=== PATIENT | male | born 1975 | race Two or more races ===

== ENCOUNTER 2023-01-13 15:24 | Emergency (ER) | payer OTHER, SELFPAY ==
[2023-01-13 16:33] VITALS: BP 122/87; PULSE 74; RESP 16; TEMP 35.9; O2SAT 100; BMI 26.4
--- NOTE | 2023-01-13 16:35 | ED.GENADULT ---
HPI - General Adult General Chief complaint: Eye Problems Stated complaint: red eyes, blurry vision Time Seen by Provider: 01/13/23 16:57 Source: patient Mode of arrival: ambulatory Limitations: no limitations History of Present Illness HPI narrative: 47-year-old male presents for bilateral redness eyes times greater than a week, patient reports it started in 1 eye and then went to the next eye, he reports at times his eyes sting, and in the morning there is crusting to bilateral eyes with yellow/green eye discharge. Patient but [id number] eyedrops for pinkeye symptom relief with little to no improvement. He reports that when there is discharge in his eye his vision is blurred however not blurred at this time. Patient denies headache, vision changes, dizziness, weakness, nausea, vomiting, abdominal pain, weakness, chest pain and shortness of breath Related Data Previous Rx's Medication Instructions Recorded erythromycin 5 mg/gram (0.5 %) eye 1 appl ophthalmic (eye) TID 5 days 01/13/23 ointment #3.5 grams Allergies Allergy/AdvReac Type Severity Reaction Status Date / Time No Known Allergies Allergy Verified 01/13/23 16:33 Review of Systems Review of Systems: Constitutional : No Weight loss, No Fever, No Chills, No Fatigue, No Malaise ENT/Mouth : No sore throat, No Rhinorrhea Eyes: No Eye Pain, No Swelling, + Redness Cardiovascular : No Chest Pain, No SOB, No Dyspnea on Exertion, No Orthopnea, No Edema, No Palpitations Respiratory : No Cough, No Sputum, No Wheezing Gastrointestinal : No Nausea, No Vomiting, No Diarrhea, No Constipation, No abdominal Pain, No Hematochezia, No Melena Genitourinary : No Dysuria, No Urinary Frequency, No Hematuria, Musculoskeletal : No joint pain, No Myalgias, No Joint Swelling Skin : No Skin Lesions, No rash Neuro : No Weakness, No Numbness, No Dizziness, No Headache Psych : No Anxiety/Panic, No Depression All other systems reviewed and are negative Yes all other systems are reviewed and are negative [facility] Past Medical History Attestation statement: The following information was validated with the patient. Source: old records reviewed and nursing notes reviewed Social History Social History Advance Directives: No Advance Directives Information Provided: No Physical Exam ED Vital Signs: Vital Signs - 24 hr 01/13/23 16:33 Temperature 96.7 F L Pulse Rate 74 Respiratory Rate 16 Blood Pressure 122/87 Pulse Oximetry 100 Oxygen Delivery Method Room Air BMI result Body Mass Index 26.4 vss Appearance: Alert.? Oriented X3.? No acute distress.? Head: Normocephalic, atraumatic, no step-offs or deformities Eyes: Pupils equal, round and reactive to light.? Extraocular movements intact and pain-free. Bilateral conjunctiva with moderate to severe injection. 20/50 b/l wears glasses usually but doesnt have them with him ENT: Pharynx normal.? Neck: Normal inspection.? Neck supple.? CVS: Normal heart rate and rhythm.? Pulses normal.? Respiratory: No respiratory distress.? Breath sounds normal.? Abdomen: Soft and nontender.? Skin: Skin warm and dry.? Normal skin color.? Normal skin turgor.? Extremities: No lower extremity edema.? No calf ttp. 5/5 strength to bilateral upper and lower extremities Back: No midline tenderness, no C-spine tenderness, full range of motion, no CVA tenderness bilaterally Neuro: Oriented X 3.? No motor deficit.? No sensory deficit. CN 2-12 intact Course Course Course Narrative: RME: 47 yold male present to the ED for bilateral red eyes with blurry vision for one week. patient taking over the counter pinky eye meds to both eye with no relief. Medications Administered Discontinued Medications Generic Name Dose Route Start Last Admin Trade Name Freq PRN Reason Stop Dose Admin Erythromycin 1 cm 01/13/23 17:02 01/13/23 17:08 Erythromycin Base 0.5% Oph Oin 1 Gm Tube EYE-BOTH 01/13/23 17:03 1 cm ONCE ONE Administration Medical Decision Making Medical Decision Making [facility] [place] Narrative: 1706 47-year-old male presents with bilateral redness in eyes. Physical exam significant for Pupils equal, round and reactive to light.? Extraocular movements intact and pain-free. Bilateral conjunctiva with moderate to severe injection. 20/50 b/l wears glasses usually but doesnt have them with him Likely bacterial conjunctivitis. Unlikely acute closed angle glaucoma, wet macular degeneration, arterial or venous occlusion in the optic vessels, signs of foreign body on my examination. I do not suspect Charles syndrome. Plan will discharge home with erythromycin. Differential Diagnosis Differential Diagnoses: The differential diagnosis associated with the presentation includes Likely bacterial conjunctivitis. Unlikely acute closed angle glaucoma, wet macular degeneration, arterial or venous occlusion in the optic vessels, signs of foreign body on my examination. I do not suspect Charles syndrome. Admission/Observation Consideration of admission/observation: Escalation of care including admission/observation considered no indication Chronic Conditions Patient?s care impacted by: Hypertension and Other (HLD) Critical Care Time Critical Care Time Critical Care Time: No Discharge Plan Discharge Clinical Impression: Bacterial conjunctivitis Patient Disposition: Home, Self-Care Instructions: Conjunctivitis (ED) Additional Instructions: Take your medications as prescribed. If you were prescribed antibiotics today, it is important that you take your medication to their entirety, do not skip any doses, do not finish them early. Follow-up with your primary care provider this week. Return to the emergency department with new or worsening symptoms. Such as fevers, chills, chest pain, shortness of breath, nausea, vomiting, dizziness, headache, vision changes, lethargy In case of emergency call 911 Prescriptions: New erythromycin 5 mg/gram (0.5 %) ointment 1 appl ophthalmic (eye) TID 5 Days Qty: 3.5 0RF Referrals: Yuval Nj [Physician] - 1 week Physician,None [Primary Care Provider] - 2 days Stand Alone Forms: Work/School Release Interventions: ED Discharge Assessment Last Done: 01/13/23 17:34 Discharge Date/Time: 01/13/23 17:35
--- NOTE | 2023-01-13 17:07 | PC.NURSE ---
pt visual acuity conducted w/o distance correction (glasses) 20/50 bilaterally PA Shandra miller
[2023-01-13] MEDS: Erythromycin Base 0.5% Oph Oin 1 GM TUBE 1 CM EYE-BOTH (17:08)
[2023-01-13 17:09] VITALS: BP 126/73; PULSE 68; RESP 16; TEMP 36.9; O2SAT 98
== END 2023-01-13 17:35 | disposition home or self-care (01) ==
LOC: HO.ED 17:18
PROVIDERS: Emergency Provider Emergency Medicine
DX: H10.89 Other conjunctivitis (principal); H53.8 Other visual disturbances
CPT/HCPCS: 99283

== ENCOUNTER 2023-11-19 20:48 | Emergency (ER) | payer OTHER, SELFPAY ==
[2023-11-19 21:24] VITALS: BP 99/58; PULSE 90; RESP 16; TEMP 36.3; O2SAT 100; BMI 26.7
--- NOTE | 2023-11-19 22:44 | MHC.EDTECH ---
Patient blood drawn and rsv/covid swab collected all sent to lab .
[2023-11-19 22:45] LABS: MANUAL DIFF FLAG NO
[2023-11-19 22:46] LABS: Basophils Percent Auto 0.2 % (0-2); Eosinophils Absolute Auto 0.1 X10*3/uL (0.0-0.4); Eosinophils Percent Auto 0.6 % (0-4); Hematocrit 44.3 % (42.0-52.0); Hemoglobin 14.9 g/dl (14.0-18.0); Imm Gran Abs Auto 0.05 X10*3/uL (0.00-0.03); Imm Gran Pct Auto 0.4 % (0.0-0.4); Lymphocytes Absolute Auto 0.6 X10*3/uL (1.2-4.9); Lymphocytes Percent Auto 4.3 % (20-40); Mean Corpuscular HGB Conc 33.6 g/dl (31.0-36.0); Mean Corpuscular Hemoglobin 29.4 pg (27.0-33.0); Mean Corpuscular Volume 87.5 fL (80.0-98.0); Mean Platelet Volume 9.2 fL (9.4-12.4); Monocytes Percent Auto 6.8 % (2-11); Neutrophils Absolute Auto 12.5 x10*3/uL (2.0-8.3); Neutrophils Percent Auto 87.7 % (45-73); Platelet Count 244 X10*3/uL (160-400); Red Blood Count 5.06 X10*6/uL (4.60-5.80); Red Cell Distribution Width 12.6 % (11.0-16.0); White Blood Count 14.2 X10*3/uL (4.8-10.8)
[2023-11-19 23:00] LABS: Alanine Aminotransferase 19 U/L (0-40); Albumin Level 4.7 g/dL (3.5-5.0); Alkaline Phosphatase 68 U/L (39-117); Anion Gap 16 (12-20); Aspartate Amino Transferase 18 U/L (5-37); Bilirubin Total 0.6 mg/dL (0.0-1.0); Blood Urea Nitrogen 19 mg/dL (9-16); Calcium 9.5 mg/dL (8.4-10.2); Carbon Dioxide 22 mmol/L (22-29); Chloride 108 mmol/L (96-108); Creatinine Clr Calc Pharmacy 101.3; Estimated Glomerular Filt Rate > 60; Glucose Random 101 mg/dL (60-115); Lipase 22 U/L (8-78); Potassium 4.3 mmol/L (3.3-5.1); Sodium 142 mmol/L (135-145); Total Protein 7.5 g/dL (6.5-8.0)
[2023-11-19 23:23] LABS: Influenza A PCR NEGATIVE (Negative); Influenza B PCR NEGATIVE (Negative); Resp Syncy Virus RNA Qual PCR NEGATIVE (Negative); SARS COV2 PCR INHOUSE NEGATIVE (Negative)
--- NOTE | 2023-11-19 23:56 | ECG_ITS ---
Test Reason : HYPERTENSION Blood Pressure : / mmHG Vent. Rate : 087 BPM Atrial Rate : 087 BPM P-R Int : 160 ms QRS Dur : 086 ms QT Int : 344 ms P-R-T Axes : 055 079 050 degrees QTc Int : 413 ms Normal sinus rhythm Nonspecific ST abnormality Abnormal ECG No previous ECGs available Referred By: Nathalie Moffett Electronically Signed By:Pete Lieberman
--- NOTE | 2023-11-19 23:56 | ED.NAVMDI ---
HPI - Nausea/Vomiting/Diarrhea General Chief complaint: Nausea/Vomiting/Diarrhea Stated complaint: blurry vision weakness, ?food poisoning Time Seen by Provider: 11/19/23 23:56 Source: patient, RN notes reviewed and spin instructor Mode of arrival: ambulatory Limitations: language barrier History of Present Illness ED Provider: Nathalie Moffett PA-C HPI Narrative: This is a 48-year-old Swedish-speaking male, with a history of hypertension hyperlipidemia who presents emergency department with complaints of acute onset nausea, vomiting and diffuse abdominal pain. Patient states that he ate a does not oysters in [place] today. He states that 2-3 hours after eating these oysters he suddenly felt abdominal cramping diffusely, nausea. He ultimately vomited once in the emergency room as well as had 1 episode of nonbloody diarrhea. Upon my evaluation, patient is feeling much better and is not complaining about any current symptoms. He states that during this episode he had no chest pain, shortness breath, fevers, chills or palpitations. He denies history of similar symptoms in the past. He states that he typically eats raw oysters, has never had cooked oysters before. Denies any sick contacts. States he was feeling well yesterday. No abdominal surgeries. No other complaints or concerns at this time. MD elicited complaint: nausea, vomiting, diarrhea and abdominal pain Associated nausea: Yes Associated abdominal pain: Yes Location of pain: diffuse Radiation: diffuse Exacerbating factors: none Relieving factors: none Associated symptoms: denies other symptoms Related Data Previous Rx's ?Medication ?Instructions ?Recorded erythromycin 5 mg/gram (0.5 %) eye 1 appl ophthalmic (eye) TID 5 days 01/13/23 ointment #3.5 grams ondansetron 4 mg disintegrating 4 mg PO Q6H PRN nausea and 11/20/23 tablet vomiting #10 tabs Allergies Allergy/AdvReac Type Severity Reaction Status Date / Time No Known Allergies Allergy Verified 11/19/23 21:24 Review of Systems Review of Systems: Yes all other systems are reviewed and are negative Constitutional: Constitutional: Reports as per HPI Gastrointestinal: Gastrointestinal: Reports nausea PMFSH Social History Social History Smoked in Last 30 Days: No Use of substances other than those prescribed or required for medical reasons: No Advance Directives: No Advance Directives Information Provided: No Do you have a plan to hurt others: No Plan Physical Exam Vital Signs: Vital Signs: Last Vital Signs Temp 98.4 F 11/20/23 00:20 Pulse 87 11/20/23 00:20 Resp 16 11/20/23 00:20 BP 115/68 11/20/23 00:20 Pulse Ox 97 11/20/23 00:20 O2 Del Method Room Air 11/20/23 00:20 BMI result Body Mass Index 26.7 Const: General: cooperative, comfortable and no acute distress Orientation/consciousness: patient oriented x3 Limitations: no limitations HEENT: Head: Yes normal to inspection, Yes normocephalic and Yes atraumatic Ears: hearing grossly normal bilaterally General nose exam: Normal external nose present Face and sinus: Yes normal facial exam Mouth: Normal oral and palatal mucosa present, oropharynx normal and moist mucous membranes Throat: Yes posterior oropharynx normal Eyes: General: appearance normal, both eyes and all related structures Eyelids: Yes eyelids normal Conjunctivae: conjunctivae normal Sclerae: sclerae normal Pupils: Equal, round and reactive pupils present EOM: EOMs intact bilaterally Neck: Neck: Yes normal visual inspection, Yes full ROM and Yes no lymphadenopathy Lymphatic: no lymphadenopathy noted Chest: Chest palpation & inspection: normal inspection of the chest Resp: Effort & Inspection: normal respiratory effort and able to speak in complete sentences Auscultation: clear to auscultation bilaterally, no crackles, no rales, no rhonchi and no wheezes Cardio: Rate: regular rate Rhythm: regular rhythm Heart sounds: S1 normal heart sound present and S2 normal heart sound present GI: Other: Abdomen is soft, nontender, nondistended Inspection: Yes normal to inspection Skin: General skin exam: no rashes or lesions noted Trauma: no lacerations or abrasions Wounds: no wounds Neuro: General: patient oriented x3 and moves all extremities Cranial nerves: Yes Equal, round and reactive pupils present Extrem: General: Yes normal to inspection Right upper extremity: normal to inspection Left upper extremity: normal to inspection Right lower extremity: normal to inspection Left lower extremity: normal to inspection Course Reevaluation(s) Reevaluation #1: Troponin negative. Patient had no chest pain, shortness for breath in his completely asymptomatic. No EKG changes. He is eating and drinking without return of symptoms, he is eager for discharge, this feeling well. Workup today was reassuring. Symptoms likely secondary to acute episode of nausea, vomiting, and abdominal pain after eating seafood. Given strict return precautions. He understands and agrees with plan. Patient stable for discharge. Time: 01:53 Medical Decision Making Medical Decision Making [facility] Narrative: This is a 48-year-old male who presents emergency department with complaints of acute onset of abdominal pain, nausea, and 1 episode of vomiting and diarrhea after eating oysters. Upon his initial arrival, blood pressure 99/58, all other vital signs within normal limits. My initial assessment was at approximately 12 30, blood pressure improved to 130s over 70s. He states that he is completely asymptomatic, he states that he vomited once and had 1 episode of diarrhea in his feeling much better. He has no current complaints during my assessment. Labs were obtained prior to my assessment, he has slight leukocytosis at 14.2, chemistry with no significant derangements. He has never been seen here before therefore no other labs for comparison. Troponin less than 2.7, negative viral swabs. EKG normal sinus rhythm, with no ST elevation or depression. Given blood pressure has improved, and he is asymptomatic, will p.o. challenge and closely monitor for any changes. Abdomen is soft, nontender, nondistended, therefore further diagnostic imaging not indicated at this time. Differential Diagnosis Differential Diagnoses: The differential diagnosis associated with the presentation includes Gastritis, gastroenteritis, ACS-unlikely, acute abdomen-unlikely Admission/Observation Consideration of admission/observation: Escalation of care including admission/observation considered Lab Data [facility] Lab Attestation statement: I reviewed the patient's lab results. slight leukocytosis at 14.2, chemistry with no significant derangements. He has never been seen here before therefore no other labs for comparison. Troponin less than 2.7, negative viral swabs. 11/19/23 22:40 11/19/23 22:40 Labs: Lab Results 11/19/23 Range/Units 22:40 WBC 14.2 H (4.8-10.8) X10*3/uL RBC 5.06 (4.60-5.80) X10*6/uL Hgb 14.9 (14.0-18.0) g/dl Hct 44.3 (42.0-52.0) % MCV 87.5 (80.0-98.0) fL MCH 29.4 (27.0-33.0) pg MCHC 33.6 (31.0-36.0) g/dl RDW 12.6 (11.0-16.0) % Plt Count 244 (160-400) X10*3/uL MPV 9.2 L (9.4-12.4) fL Immature Gran % (Auto) 0.4 (0.0-0.4) % Neut % (Auto) 87.7 H (45-73) % Lymph % (Auto) 4.3 L (20-40) % [place] % (Auto) 6.8 (2-11) % Eos % (Auto) 0.6 (0-4) % Baso % (Auto) 0.2 (0-2) % Lymph # (Auto) 0.6 L (1.2-4.9) X10*3/uL [place] # (Auto) 1.0 (0.1-1.2) X10*3/uL Eos # (Auto) 0.1 (0.0-0.4) X10*3/uL Baso # (Auto) 0.0 (0.0-0.2) X10*3/uL Abs Immat Gran (auto) 0.05 H (0.00-0.03) X10*3/uL Absolute Neuts (auto) 12.5 H (2.0-8.3) x10*3/uL Absolute Nucleated RBC 0.000 (0.0-0.012) X10*3/uL Nucleated RBC % (auto) 0.0 (0.0-0.2) /100WBC Sodium 142 (135-145) mmol/L Potassium 4.3 (3.3-5.1) mmol/L Chloride 108 (96-108) mmol/L Carbon Dioxide 22 (22-29) mmol/L Anion Gap 16 (12-20) BUN 19 H (9-16) mg/dL Creatinine 1.00 (0.5-1.4) mg/dL Estim Creat Clear Calc 101.3 Estimated GFR > 60 Random Glucose 101 (60-115) mg/dL Calcium 9.5 (8.4-10.2) mg/dL Magnesium 2.0 (1.6-2.6) mg/dL Total Bilirubin 0.6 (0.0-1.0) mg/dL AST 18 (5-37) U/L ALT 19 (0-40) U/L Alkaline Phosphatase 68 (39-117) U/L Troponin I High Sens < 2.7 (<3.5-35.0) ng/L Total Protein 7.5 (6.5-8.0) g/dL Albumin 4.7 (3.5-5.0) g/dL Lipase 22 (8-78) U/L Influenza Type A (PCR) NEGATIVE (Negative) Influenza Type B (PCR) NEGATIVE (Negative) RSV RNA Qual (PCR) NEGATIVE (Negative) SARS-CoV-2 RNA (RT-PCR) NEGATIVE (Negative) Independent Historian Clinical information obtained from an independent historian. History obtained from or confirmed by: Spouse Discharge Plan Discharge Clinical Impression: Nausea & vomiting Patient Disposition: Home, Self-Care Instructions: Acute Nausea and Vomiting (ED), Acute Abdominal Pain (ED) Additional Instructions: You were seen in the emergency department after experiencing nausea, vomiting, and abdominal pain after eating oysters. Your workup today was reassuring. Drink plenty of fluids get plenty of rest. If your nausea does return, you may take the medication I prescribed to you. Only take this as needed. Follow-up with your primary care physician. Stick to a bland diet, avoid spicy or fried foods. If any new or worsening symptoms occur including but not limited to severe chest pain, shortness breath, severe abdominal pain, please return for re-evaluation. Prescriptions: New ondansetron 4 mg tablet,disintegrating 4 mg PO Q6H PRN (Reason: nausea and vomiting) Qty: 10 0RF No Action erythromycin 5 mg/gram (0.5 %) ointment 1 appl ophthalmic (eye) TID 5 Days Qty: 3.5 0RF Print Language: Swedish
[2023-11-20 00:20] VITALS: BP 115/68; PULSE 87; RESP 16; TEMP 36.9; O2SAT 97
[2023-11-20 01:43] LABS: Troponin-I High Sensitivity < 2.7 ng/L (<3.5-35.0)
[2023-11-20 02:13] VITALS: BP 106/70; PULSE 85; RESP 16; TEMP 36.7; O2SAT 99
[2023-11-20 02:18] VITALS: BP 106/70; PULSE 85; RESP 16; TEMP 36.7; O2SAT 99
== END 2023-11-20 02:18 | disposition home or self-care (01) ==
PROVIDERS: Physician Assistant Medical; Emergency Provider Emergency Medicine
DX: R11.2 Nausea with vomiting, unspecified (principal); R10.9 Unspecified abdominal pain; E78.5 Hyperlipidemia, unspecified; I10 Essential (primary) hypertension; Z03.818 Encounter for observation for suspected exposure to other biological agents ruled out
CPT/HCPCS: 0241U; 36415; 80053; 83690; 83735; 84484; 85025; 93005; 99283; 99284

== ENCOUNTER → 2023-11-19 23:56 | Outpatient (BNV) | payer OTHER, SELFPAY | PROVIDERS: Emergency Provider Emergency Medicine; Visit Provider Internal Medicine Cardiovascular Disease | DX: I10 Essential (primary) hypertension (principal); R94.31 Abnormal electrocardiogram [ECG] [EKG] | CPT/HCPCS: 93010 ==